=== PATIENT | female | born 1950 | race Caucasian/White ===

== ENCOUNTER 2018-10-11 07:30 | Inpatient (IN) | payer MEDICARE ==
--- NOTE | 2018-10-04 11:32 | HP ---
AMENDED REPORT NOW INCLUDES COSIGNER DESIGNATION HISTORY AND PHYSICAL: DATE OF SURGERY: 10/11/18 DATE OF OFFICE VISIT: 10/03/18 SURGEON: Kacey Larry MD.* (DICTAED BY JONATHAN HANNAH) PROCEDURE: Left total knee revision. PRIMARY CARE PHYSICIAN: Dr. Barbara Martinez. CHIEF COMPLAINT: Left knee pain. HISTORY OF PRESENT ILLNESS: Ms. Keyes is a 68-year-old female with continued left knee pain. She had a left total knee arthroplasty in 1997. X-rays and MRI do show some obvious osteolysis around the implant and she has elected to proceed with revision of left total knee arthroplasty. PAST MEDICAL HISTORY: Hypertension, high cholesterol. PAST SURGICAL HISTORY: Hysterectomy, left total knee arthroplasty, right total knee arthroplasty, and right total knee revision. CURRENT MEDICATIONS: 1. Percocet every 4 to 6 hours as needed. 2. Simvastatin 40 mg at bedtime. 3. Hydrochlorothiazide 25 mg daily. 4. Omeprazole 20 mg daily. 5. Citalopram 20 mg daily. ALLERGIES: LATEX. FAMILY HISTORY: Coronary artery disease, COPD, and cancer. SOCIAL HISTORY: She is a 68-year-old female. She lives with her daughter. She does not smoke. She uses occasional alcohol. Greer use of illicit drugs. REVIEW OF SYSTEMS: A complete 14-point review of systems was reviewed with the patient and it was all negative or noncontributory. She denies history of DVT, PE, hepatitis, HIV or anesthesia problems. PHYSICAL EXAMINATION GENERAL: She is well developed, well nourished, in no acute distress. VITAL SIGNS: She stands 5 feet 1 inch tall, weighs 159 pounds. Her blood pressure is 114/70, her heart rate is 74. HEENT: Normocephalic, atraumatic. NECK: Supple. No palpable lymph nodes. PULMONARY: Lungs are clear to auscultation bilaterally. CARDIO: Regular rate and rhythm. Strong S1 and S2. ABDOMEN: Soft, nontender, nondistended. NEUROLOGICAL: She is alert and oriented x3. MUSCULOSKELETAL: Left lower extremity: The skin is intact. There are no open wounds. She has a palpable fullness in the back of her knee, where there is a moderate knee effusion. Range of motion is 0 to 130 degrees of flexion. She has a 2+ dorsalis pedis pulse. Her lower extremity muscle group strengths are intact at 5/5. She has intact sensation. ASSESSMENT AND PLAN: Ms. Keyes is a 68-year-old female who underwent a left total knee arthroplasty in 1997. She has continued pain and has elected to proceed with a left total knee revision, which is scheduled for 10/11/[address] Larry discussed the risks and benefits of the surgery at today' s visit and all of her questions were answered. She will follow up with Dr. Larry 2 weeks after the surgery. JONATHAN HANNAH [id number]/[facility] #: [id number] ALEJANDRO
[~2018-10-11 07:30] MED LIST: Acetaminophen TAB* 325 MG PO ONE; Buffered Lidocaine 1% SYRIN* 1 ML/SYRINGE INTRADERM ONE; Famotidine IV* 10 MG/ML 2 ML (20 mg) IV ONE; Gabapentin CAP(*) 300 MG PO ONE; Lactated Ringers 1000 ML Bag* 1,000 ML IV SCH; Tranexamic Acid 1,000 MG in NS 0.9% 50 ML* (outpatient use) IV SCH; celeCOXIB CAP* 200 MG PO ONE
--- OUTSIDE RECORDS SUMMARY | 2018-10-11 09:27 | XMS REPORT | Continuity of Care Document ---
:1950 External Reference #:[id number] Author Name Celeste Gonzalez Care Team Providers Name Role Phone Barbara Martinez MD Primary Care Physician Unavailable Payers Date Identification Numbers Payment Provider Subscriber Effective: 2013 Policy Number: [id number] Medicare Blue Ppo Jeni Bartlett Group Number: [id number] [address] [address] PayID: [id number] [place] [address] Advance Directives Description No Information Available Problems Date Description Provider Status Onset: 06/03/2015 Pain in right lower limb Kacey Larry M.D. Active Onset: 06/03/2015 Stress fracture, right tibia, subsequent Kacey Larry M.D. Active encounter for fracture with delayed healing Onset: 04/18/2016 Arthroplasty of knee Kacey Larry M.D. Active Onset: 01/27/2017 Open wound of scalp without complication Kacey Larry M.D. Active Onset: 01/17/2018 Localized, primary osteoarthritis of the Kacey Larry M.D. Active pelvic region and thigh Onset: 01/17/2018 Trochanteric bursitis Kacey Larry M.D. Active Onset: 07/25/2018 Periprosthetic osteolysis Kacey Larry M.D. Active Onset: 07/11/2018 Localized superficial swelling of skin Kacey Larry M.D. Active Family History Date Family Member(s) Observation Comments General Heart Disease General Cancer Social History Type Date Description Comments Sex Unknown Lives With Alone Occupation Retired ETOH Use Drinks 3 Alcoholic Beverages Per Week Tobacco Use Start: Unknown Patient has never smoked Smoking Status Reviewed: 10/03/18 Patient has never smoked Exercise Type/Frequency Exercises regularly Allergies, Adverse Reactions, Alerts Date Description Reaction Status Severity Comments 07/18/2014 Latex Rash Active Medications Medication Date Status Form Strength Qnty SIG Indications Ordering Provider Oxycodone-Acetaminop 06/20 Active Tablets 5-325mg 90tab 1-2 tabs M25.562 Kacey s by mouth Laron, every 4-6 M.D. hours as needed for pain Simvastatin Active Tablets 40mg 1 by Unknown /0000 mouth every night at bedtime Hydrochlorothiazide Active Tablets 25mg 1 by Unknown /0000 mouth every day Omeprazole Active Capsules 20mg 1 by Unknown /0000 DR mouth every day Citalopram Active Tablets 20mg 1 by Unknown Hydrobromide /0000 mouth every day Meloxicam 02/07 Hx Tablets 15mg 30tab 1 by M70.61 Kacey s mouth Laron, - every day M.D. 06/19 Oxycodone-Acetaminop 02/07 Hx Tablets 5-325mg 90tab 1-2 tabs M70.61 Kacey s by mouth Laron, - every 4-6 M.D. 06/19 hours needed for pain Percocet 01/13 Hx Tablets 5-325mg 90tab 1-2 tabs s by mouth Laron, - q12 as M.D. 01/16 pain Percocet 01/15 Hx Tablets 5-325mg 80tab 1-2 tabs M25.561 Kacey s by mouth Laron, - q12 as M.D. 01/13 needed pain Tramadol HCL 10/27 Hx Tablets 50mg 40tab 1 tablet Kacey s by mouth Laron, - every 6 M.D. 08/28 hours needed pain Percocet 09/22 Hx Tablets 5-325mg 80tab 1-2 tabs s by mouth Laron, - q6 as M.D. 01/14 pain Coumadin 08/29 Hx Tablets 2.5mg 50tab by mouth Kacey s use as Laron, - directed M.D. 01/14 Colace 08/29 Hx Capsules 100mg 60cap 1 by s mouth Laron, - twice a M.D. 8 07/18 Hx Tablets 5-325mg 80tab take 1 to s 2 tablets Laron, - by mouth M.D. 07/18 every to 8 hours as needed pain Percocet 07/18 Hx Tablets 5-325mg 80tab 1-2 tabs s by mouth Laron, - q4-6 as M.D. 09/22 pain Methotrexate Hx 10mg 4 tabs Unknown /0000 once - weekly 10/02 Folic Acid Hx Unknown /0000 - 10/02 Medications Administered in Office Medication Date Status Form Strength Qnty SIG Indications Ordering Provider Depomedgail Administered Injection Kacey 40MG 018 Antonio Larry Immunizations Description No Information Available Vital Signs Date Vital Result Comment 10/03/2018 11:56am Height 60 inches 5'0" Weight 159.00 lb Heart Rate 74 /min BP Systolic 114 mmHg BP Diastolic 70 mmHg Respiratory Rate 12 /min Body Temperature 98.4 F Pain Level 5 BMI (Body Mass Index) 31.0 kg/m2 07/25/2018 11:55am Height 60 inches 5'0" Weight 150.00 lb BP Systolic 138 mmHg BP Diastolic 80 mmHg Respiratory Rate 15 /min Body Temperature 98.0 F Pain Level 4 BMI (Body Mass Index) 29.3 kg/m2 07/11/2018 8:09am Height 60 inches 5'0" Weight 150.00 lb Heart Rate 76 /min BP Systolic 122 mmHg BP Diastolic 88 mmHg BMI (Body Mass Index) 29.3 kg/m2 06/20/2018 11:33am Height 60 inches 5'0" Weight 150.00 lb Heart Rate 76 /min BP Systolic 164 mmHg BP Diastolic 90 mmHg BMI (Body Mass Index) 29.3 kg/m2 02/07/2018 11:11am Height 60 inches 5'0" Weight 152.00 lb BP Systolic 128 mmHg BP Diastolic 86 mmHg Body Temperature 98.3 F BMI (Body Mass Index) 29.7 kg/m2 01/17/2018 8:03am Height 60 inches 5'0" Weight 155.00 lb Heart Rate 80 /min BP Systolic 128 mmHg BP Diastolic 84 mmHg BMI (Body Mass Index) 30.3 kg/m2 01/27/2017 1:22pm Height 60 inches 5'0" Weight 165.00 lb Heart Rate 76 /min BP Systolic 146 mmHg BP Diastolic 106 mmHg Body Temperature 97.9 F BMI (Body Mass Index) 32.2 kg/m2 09/16/2016 1:00pm Height 60 inches 5'0" Weight 142.00 lb Respiratory Rate 19 /min Pain Level 4 BMI (Body Mass Index) 27.7 kg/m2 09/02/2015 12:07pm Height 60 inches 5'0" Weight 142.00 lb Pain Level 4 BMI (Body Mass Index) 27.7 kg/m2 06/03/2015 2:26pm Height 60 inches 5'0" Weight 142.00 lb Pain Level 2 BMI (Body Mass Index) 27.7 kg/m2 03/20/2015 11:18am Height 60 inches 5'0" Weight 142.00 lb Heart Rate 72 /min BP Systolic 128 mmHg BP Diastolic 93 mmHg Pain Level 4 BMI (Body Mass Index) 27.7 kg/m2 02/20/2015 1:02pm Height 60 inches 5'0" Weight 142.00 lb Heart Rate 68 /min BP Systolic 143 mmHg BP Diastolic 85 mmHg Pain Level 4 BMI (Body Mass Index) 27.7 kg/m2 01/15/2015 10:26am Height 60 inches 5'0" Weight 142.00 lb Heart Rate 77 /min BP Systolic 137 mmHg BP Diastolic 98 mmHg Pain Level 5 BMI (Body Mass Index) 27.7 kg/m2 11/24/2014 1:46pm Height 60 inches 5'0" Weight 156.00 lb BMI (Body Mass Index) 30.5 kg/m2 10/27/2014 3:05pm Height 60 inches 5'0" Weight 156.00 lb BMI (Body Mass Index) 30.5 kg/m2 09/22/2014 11:54am Height 60 inches 5'0" Weight 156.00 lb Body Temperature 98.7 F BMI (Body Mass Index) 30.5 kg/m2 08/29/2014 8:32am Height 60 inches 5'0" Weight 156.00 lb Heart Rate 85 /min BP Systolic 136 mmHg BP Diastolic 90 mmHg BMI (Body Mass Index) 30.5 kg/m2 08/04/2014 9:46am Height 60 inches 5'0" Weight 156.00 lb Pain Level 8 BMI (Body Mass Index) 30.5 kg/m2 07/18/2014 8:24am Height 60 inches 5'0" Weight 156.00 lb Heart Rate 77 /min BP Systolic 156 mmHg BP Diastolic 103 mmHg BMI (Body Mass Index) 30.5 kg/m2 Results Test Date Facility Test Result H/L Range Note Urine Culture And 08/29/2014 [facility] Urine Culture (SEE NOTE ) 1, [address] [place] [address] [phone] Urinalysis Profile 08/29/2014 [facility] Urine Color Yellow [address] [place] [address] [phone] Urine Appearance Clear N Urine Specific [place] 1.025 N 1.010-1.030 Urine pH 5.0 N 5-9 Urine Urobilinogen Negative N Negative Urine Ketones Negative N Negative Urine Protein Negative N Negative Urine Leukocytes Trace Abnormal Negative Urine Blood 1+ Abnormal Negative Urine Nitrite Negative N Negative Urine Bilirubin Negative N Negative Urine Glucose Negative N Negative Urine White Blood Cell Trace N Absent Urine Red Blood Cell Trace N Absent Urine Bacteria Absent N Absent Urine Squamous Epithelial Cell Present Abnormal Absent Urine Hyaline Casts Present Abnormal Absent Type & Screen 08/29/2014 [facility] Patient Blood Type A Positive N [address] [place] [address] [phone] Antibody Screen NEGATIVE N Laboratory test 07/29/2014 [facility] Erythrocyte Sed 17 mm/Hr N 0-[address] [place] [address] [phone] CBC Auto Diff 07/29/2014 [facility] White Blood 7.0 N 4.8- 10.[address] Count 10^3/[place] [address] [phone] Red Blood Count 4.28 10^6/uL N 4.0-5.4 Hemoglobin 14.2 g/dL N 12.0-16.0 Hematocrit 43 % N 35-47 Mean Corpuscular Volume 100 fL High 80-97 Mean Corpuscular Hemoglobin 33 pg High 27-31 Mean Corpuscular HGB Conc 33 g/dL N 31-36 Red Cell Distribution Width 13 % N 10.5-15 Platelet Count 293 10^3/uL N 150-450 Mean Platelet Volume 9 um3 N 7.4-10.4 Abs Neutrophils 3.3 10^3/uL N 1.5-7.7 Abs Lymphocytes 2.7 10^3/uL N 1.0-4.8 Abs Monocytes 0.8 10^3/uL N 0-0.8 Abs Eosinophils 0.2 10^3/uL N 0-0.6 Abs Basophils 0.1 10^3/uL N 0-0.2 Abs Nucleated RBC 0 10^3/uL N Granulocyte % 46.9 % N 38-83 Lymphocyte % 38.2 % N 25-47 Monocyte % 11.4 % High 1-9 Eosinophil % 2.7 % N 0-6 Basophil % 0.8 % N 0-2 Nucleated Red Blood Cells % 0.1 N Laboratory test 07/29/2014 [facility] C Reactive 1.67 mg/L N < 5.00 4 finding [address] [place] [address] [phone] 1 09/09 2 RUN DATE: 08/31/14 [facility] LAB LIVE PAGE 1 RUN TIME: 838 [facility] [place], [place] [address] Specimen Inquiry Name: JENI BARTLETT : [address]: Kacey Larry MD Acct: [id number] Unit: [id number] AGE: 64 Location: [facility] Re08/29/14 SEX: F Status: REG REF SPEC: [id number] MARY: 08/29/14 [facility] DR: Kacey Larry MD REQ: [id number] RECD: 08/29/14 STATUS: NEFTALI SANCHEZ DR: ABBY AGUILAR MD _ SOURCE: URINE SPDESC: ORDERED: Urine Culture Procedure Result Verified Site Urine Culture Final 08/31/14 08 ML Organism 1 NORMAL LISA [place] Count 1-10,000 (Few) CFU/ML END OF REPORT * ML=Testing performed at Main Lab DEPARTMENT OF PATHOLOGY, [address] [place] [address] Moises Pa M.D. Director [facility] # [id number] 3 SPRAINS AND STRAINS RIGHT KNEE MEDIAL COLLATERAL 4 Acute inflammation: >10.00 Procedures Date Code Description Status 01/17/2018 Injection Single Tendon Origin/Insertion Completed 12/13/2017 05916 Biopsy Skin Lesion Single Completed 06/09/2015 115883710 Bone Mineral Density Test Completed 01/23/2015 661667661 Bone Mineral Density Test Completed 09/22/2014 03225 Xray Knee 3 Views Completed 09/22/2014 30395 Rad Exam; Femur Completed 09/09/2014 79796 Revision TKA W Or W/O Allograft;Femoral & Entire Completed Tibial Component 09/09/2014 83934 Revision TKA W Or W/O Allograft;Femoral & Entire Completed Tibial Component 07/18/2014 79654 Xray Knee 3 Views Completed Encounters Type Date Location Provider Dx Diagnosis Office Visit 07/25/2018 Orthopedic Kacey Larry, M25.562 Pain in left knee 11:30a [facility] M25.462 Effusion, left knee Z96.652 Presence of left artificial knee joint T84.053A Periprosth osteolysis of internal prosthetic l knee jt, init Office Visit 07/11/2018 8:00a [facility]opedic Services Kacey Larry, M25.562 Pain in left Of C.Cisco.Dheeraj BuchananDDanica knee M25.462 Effusion, left knee Z96.652 Presence of left artificial knee joint R22.42 Localized swelling, mass and lump, left lower limb Office Visit 06/20/2018 11:00a Orthopedic Services Kacey Larry, M25.562 Pain in left Of [facility] M.D. 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 osteoarthritis, right [facility] hip M70.61 Trochanteric bursitis, right hip M25.551 Pain in right hip Office Visit 01/27/2017 1:00p Orthopedic Kacey W19.xxxA Unspecified fall , [facility] Antonio Larry initial encounter [facility]. S01.01xA Laceration without foreign body of scalp, initial encounter M25.561 Pain in right knee Z96.651 Presence of right artificial knee joint Office Visit 09/16/2016 1:15p Orthopedic Services Kacey Larry, M25.561 Pain in right Of [facility]. M.D. knee Z96.651 Presence of right artificial knee joint M25.461 Effusion, right knee Office Visit 04/18/2016 2:30p Orthopedic Services Kacey Larry, M25.561 Pain in right Of [facility]. M.D. knee Z96.651 Presence of right artificial knee joint Z91.81 History of falling Office Visit 09/02/2015 11:30a Orthopedic Kacey Larry, M84.361D Stress fracture, Services Of M.D. right tibia, [facility]. subs for fx w routn heal M79.604 Pain in right leg Z96.651 Presence of right artificial knee joint Z87.312 Personal history of (healed) stress fracture Office Visit 06/03/2015 2:30p Orthopedic Kacey Larry M84.361D Stress fracture, Services Of M.D. right tibia, [facility]. subs for fx w routn heal M79.604 Pain in right leg T84.092D [facility] compl of internal right knee prosthesis, subs encntr Z87.312 Personal history of (healed) stress fracture Office Visit 03/20/2015 11:30a Orthopedic Kacey Larry, 733.93 Stress Fracture Services Of [facility] M.D. Of Tibia Or Fibula V54.81 Aftercare Following Joint Replacement Office Visit 02/20/2015 1:20p Orthopedic Services Kacey Larry 719.46 Pain Joint Of [facility] M.D. Lower Leg 733.93 Stress Fracture Of Tibia Or Fibula Office Visit 01/15/2015 10:20a Orthopedic Kacey Larry 719.46 Pain Joint Lower Services Of M.D. Leg [facility].M.A. Office Visit 08/04/2014 9:45a Orthopedic Kacey Larry, 844.1 Sprains & Strains Services Of M.D. Knee Medial [facility]. Collateral Ligament Office Visit 07/18/2014 8:15a Orthopedic Kacey Larry, 844.1 Sprains & Strains Services Of M.D. Knee Medial [facility]. Collateral Ligament Plan of Treatment Future Appointment(s):10/24/2018 10:45 am - Kacey Larry M.D. at [facility]10/11/2018 1:00 pm - SURESH Redding at [facility]10/11/2018 1:00 pm - JONATHAN Bill at [facility]10/11/2018 1:00 pm - Kacey Larry M.D. at [facility]10/03/2018 - Kacey Larry M.D.M25.562 Pain in left kneeFollow up:Follow up: 2 weeks after [id number] Effusion, left kneeZ96.652 Presence of left artificial knee rfutaQ37.053A Periprosthetic osteolysis of internal prosthetic left knee j
--- OUTSIDE RECORDS SUMMARY | 2018-10-11 09:27 | XMS REPORT | Continuity of Care Document ---
:1950 External Reference #:[id number] Author Name Juana Guevara Care Team Providers Name Role Phone Barbara Martinez MD Primary Care Physician Unavailable Payers Date Identification Numbers Payment Provider Subscriber Effective: 2013 Policy Number: [id number] Medicare Blue Ppo Jeni Bartlett Group Number: [id number] [address] [address] PayID: [id number] [place] [address] Advance Directives Description No Information Available Problems [...] 09/22 Hx Tablets 5-325mg 80tab 1-2 tabs Kacey s by mouth Laron, - q6 as [...] Form Strength Qnty SIG Indications Ordering Provider Anaiomedgail Administered Injection Kacey 40MG 018 Antonio Larry [...] Date Facility Test Result H/L Range Note Inr/Protime 10/03/2018 [facility] Inr 0.94 N 0.77-1.[address] [place] [address] [phone] Laboratory test 10/03/2018 [facility] Partial 31.1 seconds N 26.0-36.[address] [place] [address] PTT [phone] Urinalysis 10/03/2018 [facility] Urine [place] [address] [phone] Urine Appearance Clear Urine Specific [place] 1.018 N 1.010-1.030 Urine pH 5.0 N 5-9 Urine Urobilinogen Negative Negative Urine Ketones Trace Abnormal Negative Urine Protein Negative Negative Urine Leukocytes 1+ Abnormal Negative Urine Blood Negative Negative Urine Nitrite Negative Negative Urine Bilirubin Negative Negative Urine Glucose Negative Negative Urine White Blood Cell 3+(>20/hpf) Abnormal Absent Urine Red Blood Cell 2+(6-10/hpf) Abnormal Absent Urine Bacteria Absent Absent Urine Squamous Epithelial Cell Present Abnormal Absent Type & Screen 10/03/2018 [facility] Patient Blood Type A Positive [address] [place] [address] [phone] Antibody Screen NEGATIVE Urine Culture And 10/03/2018 [facility] Urine Culture SEE RESULT [address] [place], [place] [address] [phone] Type & Screen 08/29/2014 [facility] Patient Blood A Positive N [address] [place] [address] [phone] Antibody Screen NEGATIVE N Urinalysis Profile 08/29/2014 [facility] Urine Color Yellow N [address] [place] [address] [phone] Urine Appearance Clear N Urine Specific [place] 1.025 N 1.010-1.030 Urine pH 5.0 N [...] Absent Urine Hyaline Casts Present Abnormal Absent Urine Culture And 08/29/2014 [facility] Urine Culture (SEE NOTE ) [address] [place] [address] [phone] Laboratory test 07/29/2014 [facility] C Reactive 1.67 mg/L N < [address] Protein 5.00 [place] [address] [phone] Laboratory test 07/29/2014 [facility] Erythrocyte Sed 17 mm/Hr N 0-[address] [place] [address] [phone] CBC Auto Diff 07/29/2014 [facility] White Blood 7.0 N 4.8-[address] Count 10^3/uL 0.8 [place] [address] [phone] Red Blood Count 4.28 10^6/uL N 4.0-5.4 [...] Nucleated Red Blood Cells % 0.1 N 1 SEE RESULT BELOW Name: JENI BARTLETT : [address]: Kacey Larry MD Acct: [id number] Unit: [id number] AGE: 68 Location: [facility] Re10/03/18 SEX: F Status: REG REF SPEC: [id number] MARY: 10/03/180 [facility] DR: Kacey Larry MD REQ: [id number] RECD: 10/03/18-1536 STATUS: NEFTALI SANCHEZ DR: Barbara Martinez MD _ SOURCE: URINE SPDESC: ORDERED: Urine Culture QUERIES: Urine Source: Clean Catch Procedure Result Reported Site Urine Culture Final 10/04/18- 1221 ML No Growth (<1,000 CFU/mL) * ML - Main Lab . END OF REPORT DEPARTMENT OF PATHOLOGY, [facility] [place][note 2] [employer] [place], [place] [address] Moises Pa M.D. Director [facility] # [id number] 2 SPRAINS AND STRAINS RIGHT KNEE MEDIAL COLLATERAL 3 AA 09/09 4 RUN DATE: 08/31/14 [facility] LAB LIVE PAGE 1 RUN TIME: 0839 [facility] [place][note 2] [employer] [place], [place] [address] Specimen Inquiry Name: JENI BARTLETT : [address]: Kacey Larry MD Acct: [id number] Unit: [id number] AGE: 64 Location: [facility] Re08/29/14 SEX: F Status: REG REF SPEC: [id number] MARY: 08/29/14-1039 [facility] DR: Kacey Larry MD REQ: [id number] RECD: 08/29/14 STATUS: NEFTALI SANCHEZ DR: ABBY AGUILAR MD _ SOURCE: URINE SPDESC: ORDERED: Urine Culture Procedure Result Verified Site Urine Culture Final 08/31/14837 ML Organism 1 NORMAL LISA [place] Count 1-10,000 (Few) CFU/ML END OF REPORT * ML=Testing performed at Main Lab DEPARTMENT OF PATHOLOGY, [address] [place] [address] Moises Pa M.D. Director [facility] # [id number] 5 Acute inflammation: >10.00 Procedures Date Code Description Status 01/17/2018 Injection Single Tendon Origin/Insertion Completed 12/13/2017 17632 Biopsy Skin Lesion Single Completed 06/09/2015 [id number] Bone Mineral Density Test Completed 01/23/2015 492415617 Bone Mineral Density Test Completed 09/22/2014 03199 Xray Knee 3 Views Completed 09/22/2014 95692 Rad Exam; Femur Completed 09/09/2014 00239 Revision TKA W Or W/O Allograft;Femoral & Entire Completed Tibial Component 09/09/2014 04139 Revision TKA W Or W/O Allograft;Femoral & Entire Completed Tibial Component 07/18/2014 26826 Xray Knee 3 Views Completed Encounters Type Date Location Provider Dx Diagnosis Office Visit 07/25/2018 Orthopedic Kacey Larry, M25.562 Pain in left knee 11:30a [facility] M25.462 Effusion, left knee Z96.652 Presence of left artificial knee joint T84.053A Periprosth osteolysis of internal prosthetic l knee jt, init Office Visit 07/11/2018 8:00a Orthopedic Services Kacey Larry, M25.562 Pain in left Of C.Cisco.Dheeraj uBchananDDanica knee M25.462 Effusion, left knee Z96.652 Presence [...] fall, initial encounter Office Visit 05/29/2018 10:10a Placement Assistant Dermatology Stewart Brunson, 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
--- OUTSIDE RECORDS SUMMARY | 2018-10-11 09:27 | XMS REPORT | Continuity of Care Document ---
:1950 External Reference #:[id number] Author Name Kya Bradford Care Team Providers Name Role Phone Barbara Martinez MD Primary Care Physician Unavailable Payers Date Identification Numbers Payment Provider Subscriber Effective: 2013 Policy Number: [id number] Medicare Blue Ppo Jeni Bartlett Group Number: [id number] [address] [address] PayID: [id number] [place] [address] Advance Directives Description No Information Available Problems [...] Form Strength Qnty SIG Indications Ordering Provider Depomedrol Administered Injection Kacey 40MG 018 Antonio Larry [...] Test Result H/L Range Note Inr/Protime 10/03/2018 [facility] Inr [address] [place] [address] [phone] Laboratory test 10/03/2018 [facility] Partial 31.1 seconds N 26.0-36.[address] [place] [address] PTT [phone] Urinalysis 10/03/2018 [facility] Urine Color [place] [address] [phone] Urine Appearance Clear Urine Specific [place] 1.018 N 1.010-1.030 Urine pH 5.0 N [...] Present Abnormal Absent Type & Screen 10/03/2018 [facility] Patient Blood Type A Positive [address] [place], [place] [id number] [phone] Antibody Screen NEGATIVE Urine Culture And 10/03/2018 [facility] Urine Culture SEE RESULT [address] [place] [address] [phone] Type & Screen 08/29/2014 [facility] Patient Blood A Positive N [address] Type [place], [place] [address] [phone] Antibody Screen NEGATIVE N Urinalysis Profile 08/29/2014 [facility] Urine Color Yellow N [address] [place] [address] [phone] Urine Appearance Clear N Urine Specific [place] 1.025 N 1.010-1.030 Urine pH 5.0 N [...] Present Abnormal Absent Urine Culture And 08/29/2014 [facility] Urine Culture (SEE NOTE ) [address] [place] [address] [phone] Laboratory test 07/29/2014 [facility] C Reactive 1.67 mg/L N < [address] Protein 5.00 [place] [address] [phone] Laboratory test 07/29/2014 [facility] Erythrocyte Sed 17 mm/Hr N 0-[address] [place] [place] [address] [phone] CBC Auto Diff 07/29/2014 [facility] White Blood 7.0 N 4.8-[address] Count 10^3/uL 0.8 [place] [address] [phone] Red Blood Count 4.28 10^6/uL N 4.0-5.4 [...] [address]: Kacey Larry MD Acct: [id number] Unit: [id number] AGE: 68 Location: [facility] Re10/03/18 SEX: F Status: REG REF SPEC: [id number] MARY: 10/03/18-14[address] [facility] [address]: Kacey Larry MD REQ: [id number] RECD: 10/03/18-153 STATUS: NEFTALI SANCHEZ DR: Barbara Martniez MD _ SOURCE: URINE SPDESC: ORDERED: Urine Culture QUERIES: Urine Source: Clean Catch Procedure Result Reported Site Urine Culture Final 10/04/18- 1221 ML No Growth (<1,000 CFU/mL) * ML - Main Lab . END OF REPORT DEPARTMENT OF PATHOLOGY, [facility] [employer] [place], [place] [address] Moises Pa M.D. Director [facility] # [id number] 2 SPRAINS AND STRAINS RIGHT KNEE MEDIAL COLLATERAL 3 AA 09/09 4 RUN DATE: 08/31/14 [facility] LAB LIVE PAGE 1 RUN TIME: 0839 [facility] [email or web address] [place], [place] [address] Specimen Inquiry Name: DHRUVJENI : [address]: Kacey Larry MD Acct: [id number] Unit: [id number] AGE: 64 Location: PAT Re08/29/14 SEX: F Status: REG REF SPEC: [id number] MARY: 08/29/14 [facility] [address]: Kacey Larry MD REQ: [id number] RECD: 08/29/14 STATUS: NEFTALI SANCHEZ DR: ABBY AGUILAR MD _ SOURCE: URINE SPDESC: ORDERED: Urine Culture Procedure Result Verified Site Urine Culture Final 08/31/14- 837 ML Organism 1 NORMAL LISA Durand Count 1-10,000 (Few) CFU/ML END OF REPORT * ML=Testing performed at Main Lab DEPARTMENT OF PATHOLOGY, [address] [place] [address] Moises Pa M.D. Director [facility] # [id number] 5 Acute inflammation: >10.00 Procedures Date Code Description Status 01/17/2018 Injection Single Tendon Origin/Insertion Completed 12/13/2017 70844 Biopsy Skin Lesion Single Completed 06/09/2015 544750220 Bone Mineral Density Test Completed 01/23/2015 372572070 Bone Mineral Density Test Completed 09/22/2014 54404 Xray Knee 3 Views Completed 09/22/2014 30370 Rad Exam; Femur Completed 09/09/2014 65609 Revision TKA W Or W/O Allograft;Femoral & Entire Completed Tibial Component 09/09/2014 10130 Revision TKA W Or W/O Allograft;Femoral & Entire Completed Tibial Component 07/18/2014 04792 Xray Knee 3 Views Completed Encounters Type [...] Pain in left Of [facility]. M.D. 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 M.D. Of Tibia Or Fibula V54.81 Aftercare Following Joint Replacement Office Visit 02/20/2015 1:20p Orthopedic Services Kacey Larry, 719.46 Pain Joint Of [facility]. M.D. Lower Leg 733.93 Stress Fracture Of Tibia Or Fibula Office Visit 01/15/2015 10:20a Orthopedic Alpesh Daniel.46 Pain Joint Lower Services Of [employer]. Leg C.M.A. Office Visit 08/04/2014 9:45a Orthopedic [...] left kneeFollow up:Follow up: 2 weeks after hbbdtuxO08.462 Effusion, left kneeZ96.652 Presence of left artificial knee etxwoA78.053A Periprosthetic osteolysis of internal prosthetic left knee j
[2018-10-11] MEDS ORDERED: Famotidine IV* 10 MG/ML 2 ML (20 mg) ONE (09:37)
[2018-10-11] MEDS ORDERED: celeCOXIB CAP* 100 MG ONE (09:37)
[2018-10-11] MEDS ORDERED: Gabapentin CAP(*) 300 MG ONE (09:37)
[2018-10-11] MEDS ORDERED: Acetaminophen TAB* 325 MG ONE (09:38)
[2018-10-11] MEDS ORDERED: ceFAZolin 2 GM PREMIX in ORs 2 GM/50 ML BAG IVPB ONE (09:38)
[2018-10-11] MEDS ORDERED: Propofol* 10 MG/ML 20 ML BTL ONE (10:40)
[2018-10-11] MEDS ORDERED: KETAMINE HCL* 50 MG/ML 10 ML VIAL ONE (10:40)
[2018-10-11] MEDS ORDERED: Ondansetron INJ* 2 MG/ML VIAL ONE ×2 (10:40→20:35)
[2018-10-11] MEDS ORDERED: Midazolam* 1 MG/ML 10 ML VIAL (10 MG) ONE (10:40)
[2018-10-11] MEDS ORDERED: fentaNYL* 50 MCG/ML 2 ML VIAL (100 MCG VIAL) ONE (10:40)
[2018-10-11] MEDS ORDERED: Bupivacaine 0.5% W/EPI SDV* 30 ML VIAL ONE (10:40)
[2018-10-11] MEDS ORDERED: ROPIVACAINE 5 MG/ML 30 ML BTL (0.5%) ONE ×2 (10:40→11:08)
[2018-10-11] MEDS ORDERED: Dexamethasone IV* 4 MG/ML 1 ML (4 MG) ONE (10:40)
[2018-10-11] MEDS ORDERED: Lidocaine 2% PF * 5 ML VIAL ONE ×2 (10:40→13:00)
[2018-10-11] MEDS ORDERED: Propofol* 500 MG/50 ML BTL ONE (13:00)
[2018-10-11] MEDS ORDERED: Phenylephrine INJ* 10 MG/ML 1 ML VIAL (10 MG) ONE (13:12)
[2018-10-11] MEDS ORDERED: Naloxone* 0.4 MG/ML 1 ML VIAL IV PRN (15:57)
[2018-10-11] MEDS ORDERED: Ondansetron INJ* 2 MG/ML VIAL IV PRN ×2 (15:57→16:35)
[2018-10-11] MEDS ORDERED: HYDROmorphone INJ1* 1 MG/ML SYRINGE IV PRN (15:57)
[2018-10-11] MEDS ORDERED: Phenylephrine INJ* 50 MG in NS 0.9% 250 ML* 245 ML IV PRN (15:57)
[2018-10-11] MEDS ORDERED: fentaNYL* 50 MCG/ML 2 ML VIAL (100 MCG VIAL) IV PRN (15:57)
[2018-10-11] MEDS ORDERED: oxyCODONE/Acetamin 5/325 MG* TAB PO PRN (16:35)
[2018-10-11] MEDS ORDERED: Ondansetron TAB* 4 MG PO PRN (16:35)
[2018-10-11] MEDS ORDERED: Polyethylene Glycol 3350* 17 GM PACKET PO PRN (16:35)
[2018-10-11] MEDS ORDERED: Cyclobenzaprine TAB* 10 MG PO PRN (16:35)
[2018-10-11] MEDS ORDERED: Magnesium Hydroxide LIQ* 30 ML UDC PO PRN (16:35)
[2018-10-11] MEDS ORDERED: diPHENhydraMINE IV* 50 MG/ML 1 ml VIAL (BENADRYL) IV PRN (16:35)
[2018-10-11] MEDS ORDERED: Bisacodyl SUPP* 10 MG SUPP PR PRN (16:35)
[2018-10-11] MEDS ORDERED: HYDROmorphone INJ* 0.5 MG/0.5 ML SYRINGE IV SLOW PU PRN (16:39)
[2018-10-11] MEDS ORDERED: Pantoprazole TAB * 40 MG TAB PO PRN (16:40)
[2018-10-11] MEDS ORDERED: traMADol TAB* 50 MG ONE (18:06)
[2018-10-11] MEDS: traMADol TAB* 50 MG PO PRN (18:07)
[2018-10-11] MEDS ORDERED: oxyCODONE/Acetamin 5/325 MG* TAB ONE (19:39)
[2018-10-11] MEDS: Lactated Ringers 1000 ML Bag* 1,000 ML IV SCH (19:41)
[2018-10-11] MEDS: oxyCODONE/Acetamin 5/325 MG* TAB PO PRN ×2 (19:45→23:45)
[2018-10-11] MEDS ORDERED: HYDROmorphone INJ1* 1 MG/ML SYRINGE ONE (20:33)
[2018-10-11] MEDS: ceFAZolin 1 GM ADVAN(*) 1 GM in NS 0.9% 50 ML* 50 ML IVPB SCH (20:46)
--- NOTE | 2018-10-11 20:58 | OP ---
DATE OF OPERATION: 10/11/18 - ROOM #346 DATE OF : [birth year] SURGEON: Kacey Larry MD CUSTOMS PATROL OFFICER: JONATHAN Haq. Ms. Felton did help throughout the procedure. She helped with wound retraction, manipulation of the knee, and wound closure. ANESTHESIOLOGIST: Dr. Madsen. ANESTHESIA: Spinal epidural with a nerve block. PRE-OP DIAGNOSES: Failed left total knee arthroplasty, aseptic loosening, and polyethylene wear. POST-OP DIAGNOSES: Failed left total knee arthroplasty, aseptic loosening, and polyethylene wear. OPERATIVE PROCEDURE: Revision left total knee arthroplasty, revision of both femoral and tibial components. TOURNIQUET TIME: 99 minutes. COMPLICATIONS: None. ESTIMATED BLOOD LOSS: 200 cc. HARDWARE USED: Our hardware was [employer] revision components cemented with two packages of Simplex bone cement with tobramycin. For the femur, a left size 3 SIGMA TC3 cemented femur with a 75 x 16 fluted uncemented stem, two posterior 4 mm augments, a lateral 8 mm augment and medial 4 mm distal augment. For the tibia, a size 2.5 MBT revision tibial tray with a 12 x 75 uncemented stem and an MBT metaphyseal sleeve. For the polyethylene insert, a 15-mm rotating platform TC3 SIGMA tibial insert size 3. PATHOLOGY: Multiple soft tissue and joint fluid specimens were obtained for cultures and sensitivities including aerobic, anaerobic, mycobacterial and fungal. BRIEF HISTORY/INDICATION: Ms. Keyes is a 68-year-old female with 1-year of increasingly severe left knee pain. She had total knee arthroplasty greater than 10 years ago. Over the last year, she developed significant pain, recurrent effusions. 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 Due to her chronic pain and recurrent effusion, she elected to have left total knee arthroplasty revision. Preoperative workup did not indicate infection. Informed consent was obtained from the patient. She understood the risks of surgery included but were not limited to bleeding, infection, damage to nearby structures, continued pain, need for further surgery, intraoperative fracture, nerve palsy, hardware failure or loosening, knee stiffness, loss of motion, anesthesia complications, stroke, heart attack, blood clot, and . She wished to proceed. INTRAOPERATIVE FINDINGS: Intraoperatively, the patient was noted to have some significant medial polyethylene wear. She had inflamed synovium with evidence of polyethylene wear. She did have a posteromedial cyst with some actual plastic debris there. The patient was noted to have significant osteopenia. There was significant bone loss along the medial femoral condyle, but not the lateral femoral condyle. She had significant bone loss posteriorly of the entire proximal tibia. This was both medial and lateral tibial bone loss posteriorly. DESCRIPTION OF PROCEDURE: Ms. Keyes was identified in the preanesthesia unit. Her left lower extremity was marked as the correct operative side. Informed consent was signed and placed in the chart. She was taken to the operating room and placed under epidural anesthesia. The tourniquet was placed on the left thigh. Left lower extremity was prepped and draped in the usual sterile fashion. Preop time-out was made to correctly identify the patient, side, and site. Appropriate perioperative antibiotics were given within 1 hour of incision. Tourniquet was inflated and total tourniquet time for this procedure was 99 minutes. The patient's prior midline incision was used. A 10-blade was used to incise down to the extensor mechanism. A new 10-blade was used to make a standard medial parapatellar arthrotomy. Joint fluid was immediately collected for cultures and sensitivities. There was no obvious purulence. The entire joint capsule looked inflamed with some chronic metallosis and polyethylene wear in the joint. This soft tissue was carefully cleared and excised from the medial and lateral gutter as well as the suprapatellar pouch. The knee was flexed with lateral subluxation of the patella. The patella was everted. Any inflamed soft tissue was removed from around the patella. The patella was checked for looseness and there was no obvious loosening of the patella. There was no significant wear of this polyethylene. Decision was made to leave the patella. Attention was turned to removal of the polyethylene insert. The insert was easily removed and showed extensive wear along the medial portion. Microsagittal saw and multiple thin flexible osteotomes were used to work around the cement implant interphase of the femoral component. Gentle tapping of the distal femur did easily removed. Very minimal bone loss was encountered laterally. Along the medial femoral condyle, the patient was noted to have osteopenia and some significant bone loss. Attention was turned to removal of the tibial plate. Microsagittal saw and multiple osteotomes were used to work at the cement implant interphase. Tibial component was removed. It was noted that the patient had significant bone loss both medially and laterally, mainly along the posterior tibia. Decision was made to use a metaphyseal sleeve for stable fixation. Any cement was carefully removed. Preparation of the tibia started with hand reaming to a size 13. Therefore, a size 12 stem was chosen. Next, the metaphyseal sleeve broach was used up to a size 32. The 32 broach had excellent fit and stability. A cleanup cut was made with an oscillating saw along the top of the metaphyseal sleeve. Tibia was sized to a size 2.5. A size 2.5 tray with the appropriate metaphyseal sleeve trial and a 75 x 12 stem trial was placed. Multiple AP and lateral C-arm views showed satisfactory position of the implant trial and no periprosthetic fracture. Next, a drill was used to enter the distal femur. Sequential hand reaming up to a size 16 was performed. A 16 stem was chosen for the femur. External rotation was marked and a cutting jig was placed. There were minimal cuts made with the 4 chamfer, 4-in-1 cutting jig. The box for the TC3 was then pinned on the distal femur and the appropriate cuts were made using an oscillating saw. The femoral trial was assembled with 2 posterior augments both 4 mm medially and laterally. There was also a distal augment medially of 8 mm and laterally of 4 mm. The femoral trial was placed on the distal femur and had excellent fit and stability. A 15 mm insert trial was placed and the knee was taken through a range of motion. The knee had full extension to a 130 degrees of flexion with satisfactory patellofemoral tracking. Multiple AP and lateral C- arm views were obtained to ensure proper position of the implants. This was ensured and there were no visible periprosthetic fractures. Tourniquet had been turned down at 87 minutes. The tourniquet was reinflated. All bony cut surfaces were copiously irrigated with sterile saline and dried. The final implants were assembled and cemented into place starting with the tibia and followed by the femur. A 15 mm insert trial was placed and the knee was brought out into full extension. Tourniquet was turned down at 99 minutes total. The knee was copiously irrigated with sterile saline. Electrocautery was used to obtain meticulous hemostasis. Once the cement was fully cured, the insert trial was removed. Any excess cement was removed from around the capsule and hardware. Final insert chosen was a 15-mm TC3 size 3 rotating polyethylene insert. This was placed without difficulty. The knee was taken through a range of motion. The knee was stable in all positions. Flexion and extension gaps were well balanced. There was good medial and lateral ligamentous tension. The knee had full extension to 130 degrees of flexion with good patellofemoral tracking. Multiple final C-arm views were obtained. Satisfactory position of the implants was noted and no periprosthetic fracture was seen. The wound was copiously irrigated with sterile saline. Extensor mechanisms was closed using interrupted #1 Vicryls. The rest of the incision was closed in a layered fashion using 0 and 2-0 Vicryls. Skin was closed using running 3-0 nylon suture. Sterile Xeroform, 4x4s, and Webril were used to cover the incision. Marcos wrap and cold pack were placed over this. The patient' s anesthesia was reversed without difficulty. She was taken to the PACU in stable condition. Intended weight-bearing will be weightbearing as tolerated. DVT prophylaxis will be Eliquis. [id number]/[facility] #: [id number] [facility]
[2018-10-11] MEDS ORDERED: HYDROmorphone INJ1* 1 MG/ML SYRINGE IV SLOW PU PRN (21:44)
[2018-10-11] MEDS: Citalopram TAB* 20 MG PO SCH (21:50)
[2018-10-11] MEDS: oxyCODONE TAB* 5 MG TAB PO PRN (21:50)
[2018-10-11] MEDS: Atorvastatin* 20 MG TAB PO SCH (21:50)
[2018-10-11] MEDS: Docusate CAP* 100 MG PO SCH (21:51)
[2018-10-11] MEDS: Magnesium Hydroxide LIQ* 30 ML UDC PO SCH (21:52)
[2018-10-11] MEDS: Acetaminophen TAB* 325 MG PO SCH (21:53)
[2018-10-12] MEDS: traMADol TAB* 50 MG PO PRN (02:03)
[2018-10-12] MEDS: oxyCODONE TAB* 5 MG TAB PO PRN ×5 (02:04→23:14)
[2018-10-12] MEDS: oxyCODONE/Acetamin 5/325 MG* TAB PO PRN ×4 (04:22→20:39)
[2018-10-12] MEDS: ceFAZolin 1 GM ADVAN(*) 1 GM in NS 0.9% 50 ML* 50 ML IVPB SCH ×2 (04:24→12:25)
[2018-10-12] MEDS: Acetaminophen TAB* 325 MG PO SCH ×3 (05:17→23:06)
[2018-10-12] MEDS: Lactated Ringers 1000 ML Bag* 1,000 ML IV SCH (06:09)
[2018-10-12 06:59] LABS: Hematocrit 38 % (35-47); Hemoglobin 12.4 g/dl (12.0-16.0); Mean Platelet Volume 8.4 fL (7.4-10.4); Platelet Count 231 10^3/ul (150-450)
[2018-10-12 07:15] LABS: BUN/Creatinine Ratio 23.7 (8-20); Calcium 9.1 mg/dL (8.6-10.3); EGFR African American 121.9 (>60); EGFR Non-African American 100.8 (>60); Potassium 4.3 mmol/L (3.5-5.0)
[2018-10-12] MEDS: Apixaban* 2.5 MG TAB PO SCH ×2 (09:08→20:40)
[2018-10-12] MEDS: Hydrochlorothiazide TAB* 25 MG PO SCH (09:08)
[2018-10-12] MEDS: Docusate CAP* 100 MG PO SCH ×2 (09:08→20:41)
[2018-10-12] MEDS: Magnesium Hydroxide LIQ* 30 ML UDC PO SCH ×2 (09:09→20:41)
--- NOTE | 2018-10-12 11:20 | PN ---
Progress Note - Progress Note Date of Service: 10/12/18 SOAP: Subjective: []Patient seen OOB in chair. She is doing very well overall. He pain is well managed. She is walking well with physical therapy. She denies SOB, palpitations. Objective: [] Vital Signs Temp 97.5 F 10/12/18 07:37 Pulse 59 10/12/18 07:37 Resp 18 10/12/18 10:09 BP 114/68 10/12/18 07:37 Pulse Ox 100 10/12/18 07:37 Intake & Output 10/11/18 10/12/18 10/12/18 18:59 06:59 18:59 Intake Total 2600 2010 299 Output Total 975 1150 100 Balance 1625 860 199 Weight 159 lb Intake: IV Fluids 2600 1055 299 ABX - CEFAZOLIN 107 LR 948 299 NS 50ML, Cefazolin 2G 50 TXA 1GM IN 50ML NS 50 lr 2500 Oral 955 Output: Urine 100 Hernandez 725 1150 Estimated Blood Loss 250 Laboratory Results - last 24 hr 10/12/18 10/12/18 06:50 06:50 Hgb 12.4 Hct 38 Plt Count 231 MPV 8.4 Sodium 136 Potassium 4.3 Chloride 104 Carbon Dioxide 27 Anion Gap 5 BUN 14 Creatinine 0.59 Est GFR ( Amer) 121.9 Est GFR (Non-Af Amer) 100.8 BUN/Creatinine Ratio 23.7 H Glucose 126 H Calcium 9.1 Left knee dressings are dry and intact calf NT and soft +dorsiflexion left ankle sensation and circulation intact distally Assessment: []s/p revision left total knee arthroplasty POD #1 Plan: []PT/OT WBAT LLE Eliquis 2.5 mg BID for DVT prophylaxis Home in 1-2 days once stairs are mastered in PT
[2018-10-12] MEDS: Atorvastatin* 20 MG TAB PO SCH (20:40)
[2018-10-12] MEDS: Citalopram TAB* 20 MG PO SCH (20:40)
[2018-10-13] MEDS: oxyCODONE/Acetamin 5/325 MG* TAB PO PRN (03:29)
[2018-10-13] MEDS: Acetaminophen TAB* 325 MG PO SCH (06:21)
[2018-10-13 06:30] LABS: Hematocrit 35 % (35-47); Hemoglobin 11.6 g/dl (12.0-16.0); Mean Platelet Volume 8.9 fL (7.4-10.4); Platelet Count 223 10^3/ul (150-450)
[2018-10-13] MEDS: Hydrochlorothiazide TAB* 25 MG PO SCH (08:56)
[2018-10-13] MEDS: Apixaban* 2.5 MG TAB PO SCH (08:56)
[2018-10-13] MEDS: Magnesium Hydroxide LIQ* 30 ML UDC PO SCH (08:56)
[2018-10-13] MEDS: oxyCODONE TAB* 5 MG TAB PO PRN (08:57)
[2018-10-13] MEDS: Docusate CAP* 100 MG PO SCH (08:58)
--- NOTE | 2018-10-13 10:02 | PN ---
Progress Note - Progress Note Date of Service: 10/13/18 SOAP: Subjective: []Patient seen OOB in chair. She continues to do very well. She denies SOB, CP , palpitations or dizziness. She feels ready to go home today. Objective: [] Vital Signs Temp 99.1 F 10/13/18 08:09 Pulse 82 10/13/18 08:09 Resp 16 10/13/18 08:57 BP 127/67 10/13/18 08:09 Pulse Ox 93 10/13/18 08:09 Intake & Output 10/12/18 10/13/18 10/13/18 18:59 06:59 18:59 Intake Total 899 1000 Output Total 650 700 Balance 249 300 Intake: IV Fluids 349 LR 349 IVPB 50 ABX - CEFAZOLIN 50 Oral 500 1000 Output: Urine 650 700 Other: # Voids 1 Laboratory Results - last 24 hr 10/13/18 05:33 Hgb 11.6 L Hct 35 Plt Count 223 MPV 8.9 Left knee dressings changed, scant dried bloody drainage, incision benign calf NT and soft active DF left ankle sensation and circulation remain intact distally 4x4s and KAREN applied Assessment: []s/p Revision left total knee arthroplasty POD #2 Plan: []PT this am Eliquis for DVT prophylaxis 1 month post op Discharge home today Follow up as scheduled with Dr. Larry 10-14 days.
[2018-10-13] MEDS: traMADol TAB* 50 MG PO PRN (10:58)
--- NOTE | 2018-10-13 11:22 | DS ---
AMENDED REPORT NOW INCLUDES COSIGNER DESIGNATION DISCHARGE SUMMARY: DATE OF ADMISSION: 10/11/18 DATE OF DISCHARGE: 10/13/18 ATTENDING PHYSICIAN: Dr. 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 SURGERY PERFORMED: Revision of total knee arthroplasty, both femoral and tibial components. HOSPITAL COURSE: Patient is a 68-year-old female with 1 year of increasingly severe left knee pain. She had a total knee arthroplasty greater than 10 years ago and over the last year developed significant pain with recurrent effusions. Her plain films revealed polyethylene wear and osteolysis. Due to her chronic pain and recurrent effusions, she elected to proceed with left total knee revision. She was taken to the operating room under the care of Dr. Kacey Larry on the date of 10/11/18. She tolerated the procedure well and left the operating room in stable condition. Postoperatively, she progressed very well with her physical therapy and occupational therapy goals. She had no medical or orthopedic postoperative complications. She mastered all of her PT/ OT goals and was found to be safe for discharge to home on the date of 10/13/18. CONDITION ON DISCHARGE: Vital signs revealed temperature of 99.1, heart rate 82 , respiratory rate 16, O2 saturation 93% on room air, and blood pressure 127/67. PLAN: Patient will be discharged to home today on 10/13/18. She will continue to bear weight as tolerated on the left lower extremity. She will continue to use Eliquis 2.5 mg p.o. b.i.d. for DVT prophylaxis for 1 month postoperatively. She was prescribed Percocet 5 mg/325 mg 1 to 2 tablets q.4 hours p.r.n. pain, #56, MDD of 8. This was sent to her pharmacy, [facility]. She will continue with the Colace while on the narcotic pain medications as well. She may shower on . She will follow up as scheduled with Dr. Larry in the office in roughly 10 to 14 days. All questions were answered prior to discharge. JONATHAN BOWDEN [id number]/[facility] #: [id number] ALEJANDRO
[2018-10-13] MEDS ORDERED: Iohexol 350* (CONTRAST) 500 ML MDV IV ONE (11:43)
--- NOTE | 2018-10-13 11:55 | PN ---
Progress Note - Progress Note Date of Service: 10/13/18 SOAP: Subjective: CTSP by daughter, concerned about desat to 80%. Pt. is dressed at bedside, denies SOB, calf pain or chest pain. Objective: LLE - calf soft, swollen, no ttp. distally nvi. Laboratory Results - last 24 hr 10/13/18 05:33 Hgb 11.6 L Hct 35 Plt Count 223 MPV 8.9 Vital Signs: Temp Pulse Resp BP Pulse Ox 99.1 F 82 16 127/67 93 10/13/18 08:09 10/13/18 08:09 10/13/18 10:58 10/13/18 08:09 10/13/18 08:09 Assessment: 68 yo F pod 2 s/p revision LTKA Plan: At bedside, new O2 sats 94% on multiple repeat vitals. I offered to get CTA and keep patient overnight to monitor O2 sat. I suspect this is due to sedation from narcotics. Patient is forceful, she is going home now. Will follow up. She is on eliquis, daughter is a supportive physician, will monitor for any other symptoms. Will d/c patient to home today.
[2018-10-13 13:18] VITALS: BP 129/63
== END 2018-10-13 12:54 | disposition home health service (06) | DRG 468 ==
LOC: AA 09:25 → SSU 18:49
PROVIDERS: ADMIT Orthopaedic Surgery Adult Reconstructive Orthopaedic Surgery; ATTEND Orthopaedic Surgery Adult Reconstructive Orthopaedic Surgery
PROC: 0SPW0JZ Removal of Synthetic Substitute from Left Knee Joint, Tibial Surface, Open Approach (ICD-10-PCS; 2018-10-11)
PROC: 0SRW0J9 Replacement of Left Knee Joint, Tibial Surface with Synthetic Substitute, Cemented, Open Approach (ICD-10-PCS; 2018-10-11)
PROC: 0SRU0J9 Replacement of Left Knee Joint, Femoral Surface with Synthetic Substitute, Cemented, Open Approach (ICD-10-PCS; 2018-10-11)
PROC: 0SPD09Z Removal of Liner from Left Knee Joint, Open Approach (ICD-10-PCS; 2018-10-11)
PROC: 0SUW09Z Supplement Left Knee Joint, Tibial Surface with Liner, Open Approach (ICD-10-PCS; 2018-10-11)
PROC: 0SPU0JZ Removal of Synthetic Substitute from Left Knee Joint, Femoral Surface, Open Approach (ICD-10-PCS; principal; 2018-10-11 12:45)
DX: T84.033A Mechanical loosening of internal left knee prosthetic joint, initial encounter (principal); Y79.2 Prosthetic and other implants, materials and accessory orthopedic devices associated with adverse incidents; M25.462 Effusion, left knee; G89.29 Other chronic pain; T84.053A Periprosthetic osteolysis of internal prosthetic left knee joint, initial encounter; I10 Essential (primary) hypertension; K21.9 Gastro-esophageal reflux disease without esophagitis; E78.2 Mixed hyperlipidemia; Z96.653 Presence of artificial knee joint, bilateral; F32.9 Major depressive disorder, single episode, unspecified; T84.84XA Pain due to internal orthopedic prosthetic devices, implants and grafts, initial encounter; M85.862 Other specified disorders of bone density and structure, left lower leg; E78.00 Pure hypercholesterolemia, unspecified; Z90.710 Acquired absence of both cervix and uterus; Z91.040 Latex allergy status; Z82.49 Family history of ischemic heart disease and other diseases of the circulatory system; Z83.6 Family history of other diseases of the respiratory system; Y92.9 Unspecified place or not applicable; Z72.89 Other problems related to lifestyle; Z88.8 Allergy status to other drugs, medicaments and biological substances; Z83.511 Family history of glaucoma; Z80.3 Family history of malignant neoplasm of breast; Z80.1 Family history of malignant neoplasm of trachea, bronchus and lung; Z80.8 Family history of malignant neoplasm of other organs or systems
CPT/HCPCS: 36415; 71046; 76000; 80048; 85014; 85018; 85049; 87070; 87073; 87205; 88300; 88305; 93005; A9270-GY; G8978-GP-CJ; G8979-GP-CI; G8987-GO-CJ; G8988-GO-CJ; G8989-GO-CJ; J0690; J1100; J1170; J2250; J2405; J2704; J2795; J3010